=== PATIENT | male | born 1955 | race Caucasian/White ===

== ENCOUNTER 2020-10-29 17:18 | Emergency (ER) | payer OTHER ==
[~2020-10-29] VITALS: Ht 177.8 cm; Wt 86.4 kg
[2020-10-29 17:39] VITALS: TEMP 98.9
[2020-10-29 19:23] VITALS: BP 160/100; PULSE 98
== END 2020-10-29 19:23 | disposition home or self-care (01) ==
LOC: COL.ER 17:18
DX: S61.412A Laceration without foreign body of left hand, initial encounter (principal); I10 Essential (primary) hypertension; W31.2XXA Contact with powered woodworking and forming machines, initial encounter; Y93.H3 Activity, building and construction; Y92.009 Unspecified place in unspecified non-institutional (private) residence as the place of occurrence of the external cause